=== PATIENT | male | born 1965 | race Caucasian/White ===

== ENCOUNTER 2022-07-31 19:43 | Emergency (ER) | payer BC ==
--- OUTSIDE RECORDS SUMMARY | 2022-07-31 19:46 | XMS REPORT | Continuity of Care Document ---
:1965 Author Organization [facility] Address [address] [place] [address] Care Team Providers Name Role Phone LEIF BOWLING Attending Clinician Unavailable Leif Bowling MD Attending Clinician YOBANY POMPA Attending Clinician Unavailable Only, Adc Test Attending Clinician Unavailable Yobany Pompa MD Attending Clinician Pob, Adc Lab Main Attending Clinician Unavailable Doctor Unassigned, Ramireno Attending Clinician Unavailable LEIF BOWLING Admitting Clinician Unavailable Leif Bowling MD Admitting Clinician Payers Payer Name Policy Type Policy Number Effective Date [id number] 2020 00:00:00 OUT OF STATE Problems Condition Condition Condition Status Onset Resolution Last Treating Co mments Source Name Details Category Date Date Treatment Clinician Date Obesity Obesity Disease Active Univers (BMI (BMI 7-14 ity of 30-39.9) 30-39.9) 00:00: [place] 00 Medical [place] Allergies, Adverse Reactions, Alerts Allergy Allergy Status Severity Reaction(s) Onset Inactive Treating Comm ents Source Name Type Date Date Clinician NO KNOWN Drug Active Univers ALLERGIE Class ity of [place] [facility] Social History Social Habit Start Date Stop Date Quantity Comments Source Exposure to Not sure [facility] SARS-CoV-2 (event) Medica l Branch Tobacco use and 2021-05-25 2021-05-25 Never used [facility] exposure 00:00:00 00:00:00 Medical Branch Sex Ass[birth year] [facility] 00:00:00 00:00:00 Medical Branch Smoking Status Start Date Stop Date Source Unknown if ever smoked [facility] Never smoker [facility] Medications Ordered Filled Start Stop Current Ordering Indication Dosage Frequency Signature Comments Components Source Medication Medication Date Date Medication? Clinician (SIG) Name Name atorvastati Yes Take by Uni vers n calcium 7-14 mouth. ity of (ATORVASTAT 19:44: [place] IN ORAL) 29 [facility] atorvastati Yes Take by Uni vers n calcium 7-14 mouth. ity of (ATORVASTAT 19:44: [place] IN ORAL) 29 [facility] water for Yes PRN, Univers irrigation 05-27 Starting ity o f irrigation 17:53: Wed [place] solution 00 05/27/21 at [facility] al 1253, Branch Until Discontinu ed, Routine, Intra-op sodium Yes PRN, Univers chloride 05-27 Starting ity of (NS) 17:53: Wed [place] injection 00 05/27/21 at [facility] 1253, Branch Until Discontinu ed, Routine, Intra-op neomycin-po Yes PRN, Univer s lymyxin-dex 05-27 Starting ity of amethasone 17:53: Wed [place] (MAXITROL) 00 05/27/21 at Med ical 3.5 1253, Branch mg/g-10,000 Until unit/g-0.1 Discontinu % ed, ophthalmic Routine, ointment Intra-op water for 2020- No PRN, Univers irrigation 05-27 Starting ity of irrigation 17:53: 21:49 Wed [place] solution 00 :34 05/27/21 at Medic al 1253, Branch Until Tue05/27/21 at 1649, Routine, Intra-op sodium 2020- No PRN, Univers chloride 05-27 Starting ity of (NS) 17:53: 21:49 Wed [place] injection 00 :34 05/27/21 at Medi homero 1253, Branch Until Tue05/27/21 at 1649, Routine, Intra-op neomycin-po 2020- No PRN, Unive rs lymyxin-dex 05-27 Starting ity of amethasone 17:53: 21:49 Wed [place] (MAXITROL) 00 :34 05/27/21 at Med ical 3.5 1253, Branch mg/g-10,000 Until Wed unit/g-0.1 05/27/21 at % 1649, ophthalmic Routine, ointment Intra-op Hyaluronida Yes PRN, Univer s se, Human 05-27 Starting ity of Recomb. 17:52: Tue [place] (HYLENEX) 00 05/27/21 at [facility] injection 1252, Branch Until Discontinu ed, Routine, Intra-op Hyaluronida 2020- No PRN, Unive rs se, Human 05-27 Starting ity o f Recomb. 17:52: 21:49 Tue [place] (HYLENEX) 00 :34 05/27/21 at [facility] homero injection 1252, Branch Until Tue05/27/21 at 1649, Routine, Intra-op eye block Yes PRN, Univers syringe 05-27 Starting ity o f mL 17:51: Tue 00 05/27/21 at [place] [address], Branch Until Discontinu ed, Intra-op EPINEPHrine Yes PRN, Univer s 1:1,000 (1 05-27 Starting ity o f mg/mL) 17:51: Tue [place] (ADRENALIN) 00 05/27/21 at [place], Branch Until Discontinu ed, Routine, Intra-op DUOVISC Yes PRN, Univers (DUOVISC 05-27 Starting ity of VISCO 17:51: Tue [place] ELASTIC) 3 00 05/27/21 at [facility] ical %-4 %(0.5 1251, Branch mL) 1 % Until (0.55 mL) Discontinu intraocular ed, injection Routine, Intra-op eye block 2020- No PRN, Univers syringe 05-27 Starting ity of mL 17:51: 21:49 [facility] 00 :34 05/27/21 at Medical 1251, Branch Until Tue05/27/21 at 1649, Intra-op EPINEPHrine 2020- No PRN, Unive rs 1:1,000 (1 05-27 Starting ity of mg/mL) 17:51: 21:49 [facility] (ADRENALIN) 00 :34 05/27/21 at [place] 1251, Branch Until Tue05/27/21 at 1649, Routine, Intra-op DUOVISC 2021-0 2021- No PRN, Univers (DUOVISC 05-27 Starting ity of VISCO 17:51: 21:49 Wed [place] ELASTIC) 3 00 :34 05/27/21 at [facility] ical %-4 %(0.5 1251, Branch mL) 1 % Until Wed (0.55 mL) 05/27/21 at intraocular 1649, injection Routine, Intra-op dexamethaso Yes PRN, Univer s ne 05-27 Starting ity of (DECADRON 17:50: Wed [place] PHOSPHATE) 00 05/27/21 at [facility] ical injection 1250, Branch Until Discontinu ed, Routine, Intra-op ceFAZolin Yes PRN, Univers (ANCEF) 05-27 Starting ity of injection 17:50: Wed [place] 00 05/27/21 at [facility] 1250, Branch Until Discontinu ed, NATACHA, Intra-op carbachoL Yes PRN, Univers (MIOSTAT) 05-27 Starting ity of 0.01 % 17:50: Wed [place] intraocular 00 05/27/21 at [place] 1250, Branch Until Discontinu ed, Routine, Intra-op balanced Yes PRN, Univers salt irrig 05-27 Starting ity o f soln comb1 17:50: Wed [place] (BSS PLUS) 00 05/27/21 at [facility] ical ophthalmic 1250, Branch solution Until 500 mL bag Discontinu ed, Routine, Intra-op dexamethaso 2020- No PRN, Unive rs ne 05-27 Starting ity of (DECADRON 17:50: 21:49 Tue [place] PHOSPHATE) 00 :34 05/27/21 at [facility] ical injection 1250, Branch Until Tue05/27/21 at 1649, Routine, Intra-op ceFAZolin 2020- No PRN, Univers (ANCEF) 05-27 Starting ity of injection 17:50: 21:49 Wed [place] 00 :34 05/27/21 at Medical 1250, Branch Until Tue05/27/21 at 1649, NATACHA, Intra-op carbachoL 2020-2020- No PRN, Univers (MIOSTAT) 05-27 Starting ity o f 0.01 % 17:50: 21:49 Wed [place] intraocular 00 :34 05/27/21 at [place] 1250, Branch Until 05/27/21 at 1649, Routine, Intra-op balanced 2020- No PRN, Univers salt irrig 05-27 Starting ity of soln comb1 17:50: 21:49 [facility] (BSS PLUS) 00 :34 05/27/21 at Med ical ophthalmic 1250, Branch solution Until Wed 500 mL bag 05/27/21 at 1649, Routine, Intra-op mydriatic 2020- No .5mL 0.5 mL, Univ ers #5 05-27 Right Eye, ity of ophthalmic 17:30: 17:29 ONCE, 1 [place] solution 00 :00 dose, Wed Medica l 0.5 mL 05/27/21 at Branch syringe 1230, Routine, DSU Pre-op mydriatic 2020- No .5mL 0.5 mL, Univ ers #5 05-27 Right Eye, ity of ophthalmic 17:30: 17:29 ONCE, 1 [place] solution 00 :00 dose, Wed Medica l 0.5 mL 05/27/21 at Branch syringe 1230, Routine, DSU Pre-op atorvastati Yes Take by Uni vers n calcium 05-22 mouth. ity of (ATORVASTAT 19:32: [place] IN ORAL) 54 Medical [place] Vital Signs Vital Name Observation Time Observation Value Comments Source Systolic blood 2021 19:30:00 134 mm[Hg] Univer sity of pressure [facility] Diastolic blood 2021 19:30:00 64 mm[Hg] Unive rsity of pressure [facility] Heart rate 2021 19:30:00 55 /min [facility] Respiratory rate 2021 19:30:00 12 /min [facility] Oxygen saturation in 2021 19:30:00 100 /min [facility] Arterial blood by [facility] Pulse oximetry Branch Body temperature 2021 19:15:00 36.94 [facility] Body height 2021-05-22 19:30:00 172.7 cm [facility] Body weight 2021-05-22 19:30:00 92.534 kg Universi ty [facility] BMI 2021-05-22 19:30:00 31.02 [facility]m2 [facility] Oxygen saturation in 2021 17:19:00 97 /min [facility] Arterial blood by [facility] Pulse oximetry [place] Systolic blood 2021 17:19:00 125 mm[Hg] Univer sity of pressure [facility] Diastolic blood 2021 17:19:00 79 mm[Hg] [facility] Heart rate 2021 17:19:00 59 /min Universi [facility] Body temperature 2021 17:19:00 37 [facility] Respiratory rate 2021 17:19:00 12 /min [facility] Body height 2021-05-22 19:30:[address] [facility] Body weight 2021-05-22 19:30:00 92.534 [address] [facility] BMI 2021-05-22 19:30:00 31.02 kg/m2 [facility] Procedures Procedure Date / Time Performing Source Performed Clinician PHACOEMULSIFICATION OF 2021 Leif Bowling [facility] CATARACT WITH INTRAOCULAR 18:34:00 [facility] LENS IMPLANT ASSIGNMENT OF BENEFITS 2021-05-20 Doctor Unassigned, [facility] 16:21:14 Ramireno [facility] Encounters Start End Encounter Admission Attending Care Care Encounter Source Date/Time Date/Time Type Type Clinicians Facility Department ID 2021-09-14 Outpatient R REGINA BOWLING OPH [id number] Univers 06:33:36 LEIF cruz [facility] 2021 2021 Hospital REGINA Bowling [id number] Univers 12:11:00 14:44:00 Encounter Leif Levy [id number] [facility] [id number] Darryl hernandez Surgical [id number] Med [place] [address] Branch 2021 2021 Surgery REGINA Bowling [id number] Univers 13:25:00 14:05:00 Leif Levy [id number] ity of [id number] [id number] [facility] 020 [place] 2021-05-26 2021-05-26 Outpatient R [facility] [id number] Univers 13:15:00 13:15:[id number] [facility] 2021-05-26 2021-05-26 Outpatient R [facility] [id number] Univers 13:15:00 13:15:00 YOBANY cruz [facility] 2021-05-26 2021-05-26 Laboratory Only, Adc Test [facility] [id number] Univers 09:30:35 09:45:35 Only Yobany Pompa [id number] it[id number] [place] [id number] [facility] 353 [place] 2021-05-20 2021-05-20 [place] Specialty Worker Xin, Adc Lab Main [facility] [id number] Univers 11:22:50 11:37:50 Visit Leif Bowling [id number] [id number] [place] [id number] [facility] 353 [facility] 2021-05-20 2021-05-20 Outpatient R [facility] [id number] Univers 11:15:00 11:15:00 LEIF cruz [facility] 2021-05-20 2021-05-20 Orders Doctor JESSENIA [id number] Univers 00:00:00 00:00:00 Only Unassigned, MAJO [id number] ity of Ramireno [facility] [id number] [place] [id number] [facility] 009 Branch Results This patient has no known results.
[2022-07-31] MEDS ORDERED: LIDOCAINE 1% MPF 5 ML VIAL ONE (20:19)
--- NOTE | 2022-07-31 20:23 | RAD REPORT ---
EXAM DESCRIPTION: CT - Head C Spine Mpr Wo Con - 07/31/2022 8:05 pm CLINICAL HISTORY: Head and neck injury status post fall. Head and neck pain COMPARISON: None. TECHNIQUE: Computed axial tomography of the head and cervical spine was obtained. Sagittal and coronal reconstruction was performed. All CT scans are performed using dose optimization technique as appropriate and may include automated exposure control or mA/KV adjustment according to patient size. FINDINGS: Left frontal scalp hematoma An intracranial bleed is not seen. The ventricles are normal in caliber. An extra-axial fluid collect ion is not noted. Moderate sinusitis. Opacification right mastoids may indicate mastoiditis. A cervical fracture is not visualized. No dislocation is noted. IMPRESSION: No acute intracranial abnormality is seen. A cervical fracture is not visualized. If the patient continues to have symptoms to suggest intracra nial /spinal cord pathology then MRI would be recommended
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
[2022-07-31] MEDS ORDERED: TETANUS & DIPHTHERIA TOX,ADULT 0.5 ML VIAL ONE (20:35)
[2022-08-02 05:46] VITALS: BP 117/74; TEMP 99; O2SAT 95
== END 2022-07-31 20:50 | disposition home or self-care (01) ==
LOC: ER 19:43
PROC: 0JQ10ZZ Repair Face Subcutaneous Tissue and Fascia, Open Approach (ICD-10-PCS; principal; 2022-07-31)
DX: S01.81XA Laceration without foreign body of other part of head, initial encounter (principal); J01.80 Other acute sinusitis; S09.90XA Unspecified injury of head, initial encounter; Z23 Encounter for immunization
CPT/HCPCS: 70450; 72125; 90471; 90714; 99284; 12011; J2001